=== PATIENT | female | born 1955 | race Caucasian/White ===

== ENCOUNTER 2016-10-01 00:52 | Day surgery (SDC) | payer OTHER ==
[2016-10-01] VITALS (10 sets, daily range): BP systolic 133–165; BP diastolic 51–79; PULSE 49–58; RESP 17–20; O2SAT 94–96
[~2016-10-01] VITALS: Ht 172.7 cm; Wt 88.6 kg
[~2016-10-01 00:52] MED LIST: ASPI-973 PO; ATOR40TA69 PO; HYDR12.55 PO; LISI-567 PO; METO25TA99 PO; NITR0.4T SL
[2016-10-01 10:25] LABS: BASOPHILS % (AUTO) 0.2 % (0-3); EOSINOPHILS % (AUTO) 1.2 % (0-5); MONOCYTES % (AUTO) 9.8 % (4-12); Mean Corpuscular Hemoglobin 29.8 pg (27.0-35.0); Mean Corpuscular Volume 87.5 fL (81-100); NEUTROPHILS % (AUTO) 66.7 % (40-74); Platelet Count 220 bil/L (150-400)
[2016-10-01 10:41] LABS: INR 0.99 ratio
[2016-10-01] MEDS ORDERED: Verapamil 2.5 mg/mL 2 mL Inj ONE (11:30)
[2016-10-01] MEDS ORDERED: Heparin 1,000 Units/500 mL NS Premix IV ONE (11:30)
[2016-10-01] MEDS ORDERED: Heparin 5,000 Units/500 mL NS Premix IV ONE (11:30)
[2016-10-01] MEDS ORDERED: Nitroglycerin 50,000 mcg/250 mL D5W Premix IV ONE (11:30)
[2016-10-01] MEDS ORDERED: Heparin 1,000 Unit/mL 10 mL Inj ONE (11:31)
[2016-10-01] MEDS ORDERED: fentaNYL-PF 50 mCg/mL 2 mL Inj ONE (11:49)
--- NOTE | 2016-10-01 18:06 | CS94 ---
[address] [address] DIAGNOSTIC CARDIAC CATHETERIZATION PATIENT: ZAK FRANCO : 1955 MR#: [id number] ADMIT: 10/01/2016 JOB ID: [id number] SERVICE DATE: 10/01/2016 INDICATION: Chest pains, abnormal stress test. History of smoking and hypertension. Patient is a 61-year-old, who came to me for evaluation of chest pains. She has a known history of hypertension and smoking. A stress test was performed which demonstrated anterior, anteroseptal wall ischemia. Given her risk factors, age, the patient was scheduled for coronary angiography. CONSENT: The patient was explained the risks, benefits, and alternatives of the procedure. Informed signed consent was obtained and placed in the chart. PROCEDURE: The patient was brought to the [facility] [place] and placed on the cath table. The right radial area was prepped and draped in the usual sterile manner. Standard right radial sheath was placed. FL 3.5 catheter was used to engage the left main coronary artery. Multiple views of left coronary artery were obtained in multiple projections. FR4 catheter was used to engage the right coronary artery. Multiple views of the right coronary artery were obtained in multiple projections. FINDINGS: The aortic pressure was 125/60, with a mean of 82. CORONARY ANGIOGRAPHY: The left main coronary artery is a short segment which bifurcates into left anterior and left circumflex coronary artery. Left main is free of any significant disease. The left anterior descending artery has mild luminal irregularities but free of any significant disease. Septal perforators were noted arising from the LAD. Diagonal branch again demonstrates luminal irregularities. The left circumflex coronary artery demonstrates a high obtuse marginal branch which has luminal irregularities. The 2nd and 3rd obtuse marginal branches are free of any significant disease. The right coronary artery is a dominant vessel with a large posterolateral and PDA branches. Minimal luminal irregularities are noted in the right coronary artery. IMPRESSION: Mild three-vessel coronary artery disease. There is absence of hemodynamically significant disease Medical management of her chest pains and the findings on the coronary angiography do not account for her symptoms. There might be a suggestion of coronary microvascular disease.
[2016-10-02] MEDS ORDERED: fentaNYL-PF 50 mCg/mL 2 mL Inj ONE (13:56)
== END 2016-10-01 23:59 | disposition home or self-care (01) ==
LOC: SOUO 00:52
PROVIDERS: ATTEND Internal Medicine Cardiovascular Disease
DX: R07.9 Chest pain, unspecified (principal); I25.10 Atherosclerotic heart disease of native coronary artery without angina pectoris; Z79.82 Long term (current) use of aspirin; E78.2 Mixed hyperlipidemia; I10 Essential (primary) hypertension
CPT/HCPCS: 36415; 80048; 85025; 85610; 93005; 93454; 99152; C1769; C1894; J1644; J2060; J2250; J3010; J7030; Q9967